=== PATIENT | female | born 1970 | race Caucasian/White ===

== ENCOUNTER 2024-10-13 21:20 | Emergency (ER) | payer BC ==
[2024-10-13 22:40] VITALS: BP 150/97; PULSE 98
== END 2024-10-13 22:42 | disposition home or self-care (01) ==
LOC: JD.ED 21:20
DX: M06.9 Rheumatoid arthritis, unspecified (principal); F17.210 Nicotine dependence, cigarettes, uncomplicated; Z91.030 Bee allergy status
CPT/HCPCS: 99283; A9270